=== PATIENT | female | born 1980 | race Caucasian/White ===

== ENCOUNTER 2020-12-01 10:53 | Outpatient (CLI) | payer OTHER, SELFPAY ==
--- NOTE | ~2020-12-01 | MM_ITS ---
EXAMINATION: MM screening [facility] BI w joseph HISTORY: Screening TECHNIQUE: Craniocaudal and mediolateral oblique 3-D tomosynthesis images were obtained and synthetic 2-D images were generated. CAD analysis was submitted and interpreted. COMPARISON: No prior mammogram is available for comparison at this institution. BREAST PARENCHYMAL COMPOSITION: The breasts are heterogeneously dense, which may obscure small masses . FINDINGS: There is no evidence of suspicious mass, calcification, or architectural distortion to sugg est malignancy in either breast. There has been no suspicious interval change. IMPRESSION: 1. No mammographic evidence of malignancy. 2. Recommend routine screening mammography in one year. BI-RADS Category 1: Negative Reviewed, dictated and finalized at location A.
== END 2020-12-01 10:54 | disposition home or self-care (01) ==
LOC: ANHIMG 10:56
PROVIDERS: PCP Family Medicine; Visit Provider Family Medicine
DX: Z12.31 Encounter for screening mammogram for malignant neoplasm of breast (principal)
CPT/HCPCS: 77063; 77067

== ENCOUNTER 2021-04-06 10:09 | Emergency (ER) | payer OTHER, SELFPAY ==
[2021-04-06 10:23] VITALS: BP 115/71; PULSE 77; RESP 18; TEMP 36.9; O2SAT 99
--- NOTE | 2021-04-06 10:57 | ED.FEMALEGU ---
HPI - Female Genitourinary General Chief complaint: Urogenital-Female Stated complaint: Female Urogenital Source: patient Mode of arrival: ambulatory Limitations: no limitations History of Present Illness HPI Narrative: Patient is a 40-year-old female who presents complaining of vaginal pain and itching x1 day. She reports initially had irritation and using tioconazole for itching and irritation as she reports she felt she had a yeast infection.. She reports possible allergic reaction to tioconazole and has swelling and burning to labial area. She reports vaginal discomfort, urinary frequency and burning with urination at this time. She denies vaginal discharge, exposure to STDs and all other complaints at this time MD elicited complaint: dysuria and genital swelling Related Data Allergies Allergy/AdvReac Type Severity Reaction Status Date / Time Penicillins Allergy Severe Rash Verified 04/06/21 10:40 Review of Systems Review of Systems: CONSTITUTIONAL: Denies fever, chills, or sweats. EYES: Denies visual changes, redness, or discharge. ENT: Denies rhinorrhea, congestion, sore throat, or otalgia. CARDIOVASCULAR: Denies chest pain, palpitations, or edema. RESPIRATORY: Denies cough or dyspnea. GASTROINTESTINAL: Denies abdominal pain, nausea, vomiting, or diarrhea. GENITOURINARY: Reports dysuria and vaginal discomfort SKIN: Denies rash or itching. MUSCULOSKELETAL: Denies back pain, joint pain, or myalgia. NEUROLOGIC: Denies headache, numbness, dizziness, or weakness. PSYCHIATRIC: Denies anxiety or depression. FOR[facility]LY [facility] Past Medical History Medical History Tachycardia Surgical History Surgical History Previous delivery, delivered 01/15/10 05/19/11 09/03/16 Family History Family History Grandparent Cancer Diabetes mellitus Hypertension Depression Anxiety Heart disease Afib Heart attack Alzheimer disease Social History Social History Smoking status: Never smoker Second hand tobacco smoke exposure: No Alcohol intake: never Drinks per week: 4 Alcohol use details: various Substance use: never Substance use type: does not use Additional occupation/education comments: ec teacher Gender identity (if verbalized by the patient): Female Spiritual care concerns: No Agree to blood products: Yes Comments At the time of signature, I have reviewed and agree with nursing past medical, surgical, social, and family history unless otherwise noted. Please see nursing chart for further information. There is no relevant family history pertinent to the presenting complaint. Exam Narrative: GENERAL: Well-appearing, well-nourished, and in no acute distress. HEAD: Normocephalic, atraumatic. ENT: Mucous membranes pink and moist. CHEST: No respiratory distress. HEART: Regular rate and rhythm. : Edema, erythema and excoriation noted to labial area MUSCULOSKELETAL: No bony tenderness. EXTREMITIES: Normal range of motion. SKIN: Warm, dry, no rash. NEURO: No focal deficits. Alert and oriented x3. Gait steady. PSYCH: Normal affect. No signs of depression or anxiety. Course Vital Signs Vital signs: Vital Signs Temperature 36.9 C 04/06/21 10:23 Pulse Rate 77 04/06/21 10:23 Respiratory Rate 18 04/06/21 10:23 Blood Pressure 115/71 04/06/21 10:23 Pulse Oximetry 99 04/06/21 10:23 Temperature 36.9 C 04/06/21 10:23 Pulse Rate 77 04/06/21 10:23 Respiratory Rate 18 04/06/21 10:23 Blood Pressure 115/71 04/06/21 10:23 Pulse Oximetry 99 04/06/21 10:23 Reviewed MDM - Female Genitourinary MDM Narrative Medical decision making narrative: Patient most likely has a reaction to the [id number] medication she proceeded to use ye
== END 2021-04-06 11:03 | disposition home or self-care (01) ==
PROVIDERS: Emergency Provider Nurse Practitioner; PCP Family Medicine
DX: N39.0 Urinary tract infection, site not specified (principal); T49.0X5A Adverse effect of local antifungal, anti-infective and anti-inflammatory drugs, initial encounter
CPT/HCPCS: 81003; 87086; 99213; G0463

== ENCOUNTER 2022-04-04 15:57 | Outpatient (CLI) | payer OTHER, SELFPAY ==
--- NOTE | ~2022-04-04 | XR_ITS ---
EXAMINATION: XR_CERV2-3V_CR DATE: 04/04/2022 16:15 INDICATION: Neck pain. TECHNIQUE: 3 views of cervical spine were obtained. COMPARISON: None. FINDINGS: There is hypolordosis of cervical spine. There is 9 degrees levocurvature of cervicothoraci c spine. Vertebral body heights are normal. There is mildly decreased disc height at C5-C6. At C5-C6, there is mild right and severe left uncovertebral joint osteoarthritis. No central canal stenosis or prevertebral soft tissue swelling. IMPRESSION: 1. Mild cervical spondylosis. Reviewed, dictated and finalized at location A.
== END 2022-04-04 15:58 | disposition home or self-care (01) ==
LOC: ANHIMG 15:59
PROVIDERS: PCP Family Medicine; Visit Provider Family Medicine
DX: M54.2 Cervicalgia (principal); M47.812 Spondylosis without myelopathy or radiculopathy, cervical region
CPT/HCPCS: 72040

== ENCOUNTER 2022-09-29 14:50 | Outpatient (CLI) | payer OTHER, SELFPAY ==
--- NOTE | ~2022-09-29 | MM_ITS ---
EXAMINATION: MM screening [facility] BI w joseph HISTORY: Screening TECHNIQUE: Craniocaudal and mediolateral oblique 3-D tomosynthesis images were obtained and synthetic 2-D images were generated. CAD analysis was submitted and interpreted. COMPARISON: 12/01/2020 BREAST PARENCHYMAL COMPOSITION: The breasts are heterogeneously dense, which may obscure small masses . FINDINGS: There is a focal asymmetry laterally in the left breast on CC view, middle third. There are no suspicious masses, calcifications or architectural distortion in the right breast to suggest piedad gnancy IMPRESSION: 1. Focal asymmetry of the left breast laterally on CC view. 2. Additional mammographic views and possible breast ultrasound are recommended. BI-RADS Category 0: Incomplete: Needs additional imaging evaluation. Reviewed, dictated and finalized at location A. IMPRESSION: 1. Focal asymmetry of the left breast laterally on CC view. 2. Additional mammographic views and possible breast ultrasound are recommended . BI-RADS Category 0: Incomplete: Needs additional imaging evaluation.
== END 2022-09-29 14:51 | disposition home or self-care (01) ==
LOC: ANHIMG 14:51
PROVIDERS: PCP Nurse Practitioner Family; Visit Provider Nurse Practitioner Family
DX: Z12.31 Encounter for screening mammogram for malignant neoplasm of breast (principal); R92.8 Other abnormal and inconclusive findings on diagnostic imaging of breast
CPT/HCPCS: 77063; 77067

== ENCOUNTER 2022-11-24 12:12 | Outpatient (CLI) | payer OTHER, SELFPAY ==
--- NOTE | ~2022-11-24 | MMUS_ITS ---
EXAMINATION: MM diagnostic peter LT w joseph, US breast LT limited HISTORY: Possible left breast mass on screening mammogram TECHNIQUE: Additional 3-D tomosynthesis images of the left breast were performed and synthetic 2-D im ages were generated. CAD analysis was submitted and interpreted. High resolution limited left breast ultrasound was performed. COMPARISON: 09/29/2022, 12/01/2020 BREAST PARENCHYMAL COMPOSITION: There are scattered areas of fibroglandular density. FINDINGS: MAMMOGRAPHIC FINDINGS: There is an 8 mm round, equal density mass with microlobulated margins at the 3:00 location in the mi ddle third of the outer breast at the 3:00 location, 3.5 cm from the nipple. ULTRASOUND: There is an 8 mm x 5 mm oval, circumscribed, parallel, complex cystic and solid mass at the 3:00 loca tion, 3 cm from the nipple corresponding to the mammographic finding in question, possible intramamma ry lymph node. No posterior features or internal vascularity are identified. Small cysts are noted at the 1:00 and 2:00 locations. IMPRESSION: 1. Probably benign left breast mass. 2. Recommend 6 month follow-up left diagnostic mammogram and ultrasound. BI-RADS category 3, probably benign findings. Reviewed, dictated and finalized at location A. IMPRESSION: 1. Probably benign left breast mass. 2. Recommend 6 month follow-up left diagnostic mammogram and ultrasound. BI-RADS category 3, probably benign findings.
== END 2022-11-24 12:13 | disposition home or self-care (01) ==
PROVIDERS: PCP Nurse Practitioner Family; Visit Provider Nurse Practitioner Family
DX: R92.8 Other abnormal and inconclusive findings on diagnostic imaging of breast (principal)
CPT/HCPCS: 76642; 77061; 77065; G0279

== ENCOUNTER 2023-06-01 11:40 | Outpatient (CLI) | payer OTHER, SELFPAY ==
--- NOTE | ~2023-06-01 | MMUS_ITS ---
EXAMINATION: MM diagnostic peter LT w joseph, US breast LT limited HISTORY: Six-month follow-up of probably benign left breast mass at 3:00 3 cm from nipple TECHNIQUE: Full field and spot ML, MLO and CC 3-D tomosynthesis images of the left breast were perfor med and synthetic 2-D images were generated. CAD analysis was submitted and interpreted. High resolut ion targeted 1:00-3:00 left breast ultrasound was performed. COMPARISON: 11/24/2022 diagnostic left mammogram and limited left breast ultrasound BREAST PARENCHYMAL COMPOSITION: The breasts are heterogeneously dense, which may obscure small masses . FINDINGS: MAMMOGRAPHIC FINDINGS: There is heterogeneously dense stroma which may obscure masses. No architectural distortion, malignan t calcification, skin thickening or retraction is detected. ULTRASOUND: 3:00 2 cm from nipple: Complex multi septated approximately 6.4 x 5.3 x 4.3 mm cyst is noted, without internal vascularity or posterior shadowing. There is through transmission. This is diminished in si ze from 8.1 x 4.6 x 5.6 mm measurement on 11/24/2022. This is likely benign. Six-month follow-up left breast ultrasound is recommended. IMPRESSION: 1. Probably benign finding 2. Six-month targeted left breast ultrasound follow-up is recommended BI-RADS category 3, probably benign findings. Reviewed, dictated and finalized at location A. MANAGED CARE IMPRESSION: 1. Probably benign finding 2. Six-month targeted left breast ultrasound follow-up is recommended BI-RADS category 3, probably benign findings.
== END 2023-06-01 11:41 | disposition home or self-care (01) ==
LOC: ANHIMG 11:41
PROVIDERS: PCP Nurse Practitioner Family; Visit Provider Nurse Practitioner Family
DX: R92.8 Other abnormal and inconclusive findings on diagnostic imaging of breast (principal)
CPT/HCPCS: 76642; 77061; 77065; G0279

== ENCOUNTER → 2024-12-30 14:32 | Outpatient (CLI) | payer OTHER, SELFPAY ==
--- NOTE | ~2024-12-30 | XR_ITS ---
XR_CERV2-3V_CR Ordering provider: Iva Deleon NP History: . M47.812 - Spondylosis without myelopathy or radiculopathy... . Comparison: None. FINDINGS: VERTEBRAL BODIES: Normal height and alignment. No visible fracture or subluxation. The dens is intact . DISK SPACES: Slight narrowing of the disc C5-C6 and C6-C7. Otherwise, Well maintained. PARASPINOUS SOFT TISSUES: No prevertebral soft tissue swelling. IMPRESSION: No acute osseous abnormality cervical spine. Slight narrowing of the disc C5-C6 and C6-C7. Reviewed, dictated and finalized at location A.
== END ==
PROVIDERS: PCP Nurse Practitioner Family; Visit Provider Nurse Practitioner Family
DX: M50.322 Other cervical disc degeneration at C5-C6 level (principal); M50.323 Other cervical disc degeneration at C6-C7 level
CPT/HCPCS: 72040

== ENCOUNTER 2025-02-28 08:55 | Outpatient (CLI) | payer OTHER, SELFPAY ==
--- NOTE | ~2025-02-28 | MM_ITS ---
EXAMINATION: MM screening [facility] BI w joseph INDICATION: Asymptomatic, referred for screening mammogram COMPARISON: 09/29/2022 and 12/01/2020 TECHNIQUE: Digital Breast Tomosynthesis CC, MLO views of Both breasts were obtained with computer-aided detection to assist in interpretation of the study. FINDINGS: The breasts are heterogeneously dense, which may obscure small masses. There is an asymmetry seen on the MLO view in the Superior right breast at posterior third. There is a mass in the inferior medial right breast at anterior third. There is an asymmetry seen on the MLO view in the retroareolar left breast at anterior third. Elsewhere, there are no mammographic features of malignancy. IMPRESSION: 1. Right breast mass and asymmetry. 2. Left breast asymmetry. RECOMMENDATION: Bilateral breast Diagnostic mammogram with true lateral, appropriate spot compression views and an ultrasound if needed. BI-RADS Category 0: Incomplete: Needs additional imaging evaluation. Reviewed, dictated and finalized at location B. IMPRESSION: 1. Right breast mass and asymmetry. 2. Left breast asymmetry. RECOMMENDATION: Bilateral breast Diagnostic mammogram with true lateral, appropriate spot compr ession views and an ultrasound if needed. BI-RADS Category 0: Incomplete: Needs additional imaging evaluation.
--- OUTSIDE RECORDS SUMMARY | 2025-02-28 09:06 | XMS_ITS | Clinical Summary ---
Author Organization [facility] Care Team Providers Care Robotic Machine Operator Name Role Phone Unavailable Primary Care Provider Unavailabl e Social History Tobacco Use Types Packs/Day Years Used Date Smoking Tobacco: Never Assessed Comments Unknown Sex and Gender Information Value Date Recorded Sex Assigned at Not on file Legal Sex Female 12:36 PM AUTHORIZATION REP Gender Identity Not on file Sexual Orientation Not on file Plan of Treatment Health Maintenance Due Date Last Done Comments Hepatitis C Virus (HCV) Screening 1980 TdaP Immunization 1980 Hepatitis B Immunization (1 of 3 - 19+ 3-dose series) 1999 Pap Smear 2001 Human Papillomavirus (HPV) Immunization (1 - 3-dose SCDM series) 2007 Cervical Cancer Screening (CCS) 2010 HPV/Cotest 2010 SARS-COV-2 Immunization ( season) 2024 Influenza Immunization (#1) 2025 05/25/2020 Respiratory Syncytial Virus (RSV) Immunization (Adult) (1 - 1-dose 75+ series) 2055 Meningococcal Immunization (ACWY) Aged Out No longer eligible based on patient's age to complete this topic Pneumococcal Immunization Combined Aged Out No longer eligible based on patient's age to complete this topic Rotavirus Immunization Aged Out No lo nger eligible based on patient's age to complete this topic
--- OUTSIDE RECORDS SUMMARY | 2025-02-28 09:07 | XMS_ITS | Patient Health Record ---
Author Organization [facility] Address [address] [place], [place] [id number] Care Team Providers Care Correctional Probation Officer Name Role Phone LIZ DESOUZA Unavailable [phone] Reason For Referral No Information Medications Medication SIG (Take, Route, Frequency, Duration) Notes Start Date End Date Status Nabumetone 500 MG Oral Tablet ORAL nabumetone 500 MG Oral TabletOriginal Medicationnabumetone 500 MG Oral Tablet *Reorder from [employer] for eRx and Interaction Alerts* 07/13/2017 Active Medrol Dosepak ORAL Medrol DosepakOr iginal MedicationMedrol Dosepak *[facility] and [facility]* 05/04/2017 Active Plan Of Treatment No Information Insurance Providers Payer Name Payer Address Payer Phone Subscriber Number Group Number Insured Name Patient Relationship to Insured Coverage Start Date Coverage End Date [facility] [address] [place] [address] [id number] YAZ COTTER Spouse - patient is the spouse of the insured
== END 2025-02-28 08:56 | disposition home or self-care (01) ==
LOC: ANHIMG 08:56
PROVIDERS: PCP Nurse Practitioner Family; Visit Provider Nurse Practitioner Family
DX: Z12.31 Encounter for screening mammogram for malignant neoplasm of breast (principal); N64.89 Other specified disorders of breast
CPT/HCPCS: 77063; 77067

== ENCOUNTER 2025-03-21 09:36 | Outpatient (CLI) | payer OTHER, SELFPAY ==
--- NOTE | ~2025-03-21 | MMUS_ITS ---
EXAMINATION: US breast BI limited, MM diagnostic peter BI w joseph HISTORY: Inconclusive mammogram TECHNIQUE: Sagittal images of both breasts ]] were performed using full field digital mammography. 3-D tomosynthesis were also obtained and synthetic 2-D images were generated. CAD analysis was submitted and interpreted. High- resolution bilateral breast ultrasound was performed.] ] COMPARISON: Mammograms from 05/12/2023 and 11/24/2022; left breast ultrasound 06/01/2023 and 11/24/2022 BREAST PARENCHYMAL COMPOSITION: The breasts are heterogeneously dense, which may obscure small masses. FINDINGS: MAMMOGRAPHIC FINDINGS: Redemonstration of the asymmetry in the upper right breast, posterior third, seen in the right MLO projection. The finding is probably benign Redemonstration of the mass in the upper inner quadrant of the right breast, anterior depth. Possible sonographic correlate. The finding is probably benign Redemonstration of the asymmetry in the left retroareolar region. Possible sonographic correlate. The finding is probably benign ULTRASOUND: There is a 5 x 5 x 4 mm benign cyst in the right breast 10:00 position 4 cm from nipple. There is an 8 x 6 x 4 mm benign cyst in the right breast at 3:00 position 4 cm from nipple. There is a 7 x 5 x 4 mm hypoechoic cyst versus solid mass in the left breast 1:00 position 3 cm from the nipple middle depth. The finding is wider than tall. No internal color Doppler flow. No posterior acoustic shadowing. The finding is probably benign. There is a 7 x 6 x 7 mm cluster of benign cysts in the left breast at 3:00 position 5 cm from the nipple. ]] IMPRESSION/RECOMMENDATION: 1. Probably benign findings in both breasts. A bilateral diagnostic mammogram and a bilateral diagnostic breast ultrasound is recommended. BI-RADS 3-Probably benign-Short interval follow-up suggested. Reviewed, dictated and finalized at location Q. IMPRESSION/RECOMMENDATION: 1. Probably benign findings in both breasts. A bilateral diagnostic mammogram a nd a bilateral diagnostic breast ultrasound is recommended. BI-RADS 3-Probably benign-Short interval follow-up suggested. IMPRESSION/RECOMMENDATION: 1. Probably benign findings in both breasts. A bilateral diagnostic mammogram a nd a bilateral diagnostic breast ultrasound is recommended. BI-RADS 3-Probably benign-Short interval follow-up suggested.
--- OUTSIDE RECORDS SUMMARY | 2025-03-21 10:58 | XMS_ITS | Clinical Summary ---
Author Organization [facility] Address [address] [place] [address] Care Team Providers Care Stone Chimney Mason Name Role Phone Benjy Frank MD Unavailable [phone] Anayeli Neves MD Unavailable Iva Deleon Primary Care Provider [phone] Allergies Active Allergy Reactions Criticality Noted Date Comments Penicillins Rash Low 08/01/2016 Medications metoprolol succinate ER (TOPROL-XL) 25 MG 24 hr tablet Take 1 tablet (25 mg total) by mouth daily. As needed for palpitations 90 tablet 3 3 Active Active Problems Problem Noted Date Diagnosed Date Palpitations SVT (supraventricular tachycardia) ([facility]) Family History Medical History Relation Comments Heart Attack Maternal Grandfather Stent Cardiac Maternal Grandfather Stent Cardiac Maternal Grandmother Heart Attack Paternal Grandfather pacemaker Paternal Grandmother Relation Status Comments Brother Alive Father Alive Maternal Grandfather Alive Maternal Grandmother Alive Mother Alive Paternal Grandfather Paternal Grandmother Alive Sister Alive Social History Tobacco Use Types Packs/Day Years Used Date Smoking Tobacco: Never Smokeless Tobacco: Never Alcohol Use Standard Drinks/Week Comments No 0 (1 standard drink = 0.6 oz pur e alcohol) Comments Unknown Sex and Gender Information Value Date Recorded Sex Assigned at Not on file 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 Gender Identity Not on file Sexual Orientation Not on file Occupation Industry Job Start Date Job End Date Not on file Not on file Not on file Not on file Last Filed Vital Signs Vital Sign Reading Time Taken Comments Blood Pressure 98/70 11/09/2023 12:02 PM CDT Pulse 58 11/09/2023 12:02 PM CDT Temperature - - Respiratory Rate - - Oxygen Saturation 100% 11/09/2023 12:02 PM CDT Inhaled Oxygen Concentration - - Weight 72 kg (158 lb 12.8 oz) 11/09/2023 12:02 P M CDT Height 162.6 cm (5' 4) 11/09/2023 12:02 PM CDT Body Mass Index 27.26 11/09/2023 12:02 PM CDT Plan of Treatment Health Maintenance Due Date Last Done Comments Cervical Cancer Screening Pa p Smear (Age 30 to 64) Every 3 Years 1980 Annual Physical 1983 Hepatitis C 1998 DTaP, Tdap and Td Vaccines ( 1 - Tdap) 1999 Hepatitis B Vaccines (1 of 3 - 19+ 3-dose series) 1999 HPV Vaccines (1 - 3-dose SCD M series) 2007 Cervical Cancer Screening Pa p with HPV Testing (Age 30 to 64) Every 5 Years 2010 Cervical Cancer Screening wi HPV 2010 Mammogram Screening 2020 COVID-19 Vaccine (3 - 2024-2 6 season) 2025 09/13/2020, 08/16/2020 Meningococcal B Vaccine Aged Out No l onger eligible based on patient's age to complete this topic Meningococcal Vaccine Aged Out No darleen moy eligible based on patient's age to complete this topic Pneumococcal Vaccine: Pediatrics (0 to 5 Years) and At-Risk Patients (6 to 49 Years) Aged Out No longer eligible b ased on patient's age to complete this topic RSV Immunizations Under 20 Months Aged Out No longer eligible b ased on patient's age to complete this topic [place] [address] GENERIC - COMMERCIAL Care Teams Stone Chimney Mason Relationship Specialty Start Date End Date Iva Deleon APNP [address] [address] [address] [place] [id number] PCP - General Nurse Practitioner Family 07/06/22 Benjy Frank MD [address] [place] [address] [place] Coil Winder Repair CARDIOVASCULAR DISEASE 07/30/16 Anayeli Neves MD [address] [place] [address] EP Coil Winder Repair CARDIOVASCULAR DISEASE 09/04/16
--- OUTSIDE RECORDS SUMMARY | 2025-03-21 10:58 | XMS_ITS | Encounter Summary ---
Author Organization [facility] Address [address] [place] [address] Care Team Providers Care Bridge Ironworker Name Role Phone Md, Generic Conversion Primary Care Provider Unavailable Md Generic Conversion Primary Care Provider Unavailable Benjy Frank MD Unavailable [phone] Anayeli Neves MD Unavailable Alba Boyer BUSINESS CONTINUITY STRATEGY DIRECTOR-C Primary Care Provider [phone] Valentina Sosa DO Primary Care Provider [phone] Iva Deleon Primary Care Provider Encounter Details Date Type Department Care Team (Late st Contact Info) Description 08/08/2016 Abstract [facility] AT [address] [address] Lonnie Tatum MA Social History Tobacco Use Types Packs/Day Years Used Date Smoking Tobacco: Never Smokeless Tobacco: Never Alcohol Use Standard Drinks/Week Comments No 0 (1 standard drink = 0.6 oz pur e alcohol) Comments Unknown Sex and Gender Information Value Date Recorded Sex Assigned at Not on file Legal Sex Female 7:38 AM CHANGE MANAGEMENT CONSULTANT Gender Identity Not on file Sexual Orientation Not on file documented as of this encounter Plan of Treatment Not on file documented as of this encounter Procedures Procedure Name Priority Date/Time Associated Diagnosis Comments CMP (ABSTRACTED LAB) Routine 07/09/2016 CBC (OUTSIDE LAB) Routine 07/09/2016 MAGNESIUM Routine 07/09/2016 CBC (OUTSIDE LAB) Routine 06/16/2016 CBC (OUTSIDE LAB) Routine 12/25/2015 documented in this encounter Results * MAGNESIUM (07/09/2016) MAGNESIUM 1.9 07/09/2016 us Doc [facility] Abstract LABORATORY Final Result * CMP (ABSTRACTED LAB) (07/09/2016) SODIUM S/P/B 137 POTASSIUM S/P/B 4.0 CHLORIDE S/P/B 98 CO2 26 BUN 7 CREATININE S/P/B 0.54 0.5 - 1.0 EGFR AFR. AMER. >60 <=90 EGFR NON-AFR. AMER. >60 <=90 CALCIUM S/P/B 9.3 GLUCOSE 85 TOTAL PROTEIN S/P/B 7.1 ALBUMIN S/P/B 3.7 3.5 - 5.0 AST 14 ALT 8 ALKALINE PHOSPHATASE S/P/B 107 BILIRUBIN TOTAL S/P/B 0.5 GLOBULIN 3.4 07/09/2016 us Doc [facility] Abstract LAB-OUTSIDE/ABSTRACTED Final Result * CBC (OUTSIDE LAB) (07/09/2016) WBC 11.6 HGB 12.9 HCT 37 PLT 197 07/09/2016 us Doc [facility] Abstract LAB-OUTSIDE/ABSTRACTED Edite d Result - Final * CBC (OUTSIDE LAB) (06/16/2016) WBC 8.6 HGB 12.5 HCT 38.1 PLT 220 06/16/2016 us Doc [facility] Abstract LAB-OUTSIDE/ABSTRACTED Final Result * CBC (OUTSIDE LAB) (12/25/2015) WBC 8.8 HGB 14.1 HCT 43.1 PLT 249 12/25/2015 us Doc [facility] Abstract LAB-OUTSIDE/ABSTRACTED Edite d Result - Final documented in this encounter Visit Diagnoses Not on filedocumented in this encounter Care Teams Bridge Ironworker Relationship Specialty Start Date End Date Md Generic ConversionMD PCP - General 07/09/16 08/26/16 Md Generic ConversionMD PCP - General 08/27/16 09/02/17 Alba Boyer, BUSINESS CONTINUITY STRATEGY DIRECTOR-C [address] [place] [address] PCP - General NURSE PRACTITIONER 09/03/17 01/09/21 Valentina Sosa DO [address] [place] [address] PCP - General FAMILY PRACTICE 01/10/21 07/05/22 Iva Deleon APNP [address] [place] [id number] PCP - General Nurse Practitioner Family 07/06/22 Benjy Frank [facility] [address] [place] [address] Bolton Salesperson Sheet Music CARDIOVASCULAR DISEASE 07/30/16 Anayeli Neves MD [address] [facility] [address] [place], [place] [phone] EP Salesperson Sheet Music CARDIOVASCULAR DISEASE 09/04/16 documented as of this encounter
--- OUTSIDE RECORDS SUMMARY | 2025-03-21 10:58 | XMS_ITS | Clinical Summary ---
Author Organization [facility] Care Team Providers Care Adjunct Mathematics Instructor Name Role Phone Unavailable Primary Care Provider Unavailabl e Social History Tobacco Use Types Packs/Day Years Used Date Smoking Tobacco: Never Assessed Comments Unknown Sex and Gender Information Value Date Recorded Sex Assigned at Not on file Legal Sex Female 12:36 PM MANAGER MATERIAL Gender Identity Not on file Sexual Orientation [...]
--- OUTSIDE RECORDS SUMMARY | 2025-03-21 10:58 | XMS_ITS | Patient Health Record ---
Author Organization [facility] Address [address] [place], [place] [address] Care Team Providers Care Steak Sauce Maker Name Role Phone LIZ DESOUZA Unavailable [phone] Reason For Referral No Information Medications Medication SIG (Take, Route, Frequency, Duration) Notes Start Date End Date Status Nabumetone 500 MG Oral Tablet ORAL nabumetone 500 MG Oral TabletOriginal Medicationnabumetone 500 MG Oral Tablet *Reorder from [employer] for eRx and Interaction Alerts* 07/13/2017 Active Medrol Dosepak ORAL Medrol DosepakOr iginal MedicationMedrol Dosepak *[facility]* 05/04/2017 Active Plan Of Treatment No Information Insurance Providers Payer Name Payer Address Payer Phone Subscriber Number Group Number Insured Name Patient Relationship to Insured Coverage Start Date Coverage End Date [facility] [address] [place] [id number] YAZ COTTER Spouse - patient is the spouse of the insured
== END 2025-03-21 09:37 | disposition home or self-care (01) ==
PROVIDERS: PCP Nurse Practitioner Family; Visit Provider Nurse Practitioner Family
DX: R92.8 Other abnormal and inconclusive findings on diagnostic imaging of breast (principal); N60.02 Solitary cyst of left breast; N60.01 Solitary cyst of right breast
CPT/HCPCS: 76642; 77062; 77066; G0279